=== PATIENT | female | born 2000 | race Caucasian/White ===

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

== ENCOUNTER 2021-09-18 17:37 | Emergency (ER) | payer OTHER ==
[2021-09-18 17:43] VITALS: BP 129/71
--- NOTE | 2021-09-18 17:49 | ED Physician Documentation ---
History of Present Illness - Stated complaint Stated Complaint: FEMALE - Chief complaint Chief Complaint: UTI - History obtained from History obtained from: Patient - History of Present Illness Timing: How many days ago (3-4) Pain level max: 2 Pain level now: 0 - Additonal information Additional information: 20-year-old female presents to the emergency department with dysuria, urinary frequency over the past 3 to 4 days. Similar to prior UTIs. She states that she is sexually active but no STD exposure that she is aware of. No back pain. No vomiting. No fevers. She uses condoms for sexual activity. No vaginal bleeding or discharge. Worse with urination, nothing makes it better. Review of Systems Constitutional: denies: Fever, Chills GI: denies: Abdominal Pain, Nausea, Vomiting, Diarrhea : reports: Dysuria, Frequency, Hesitancy. denies: Incontinent, Now EGA Skin: denies: Rash Musculoskeletal: denies: Neck pain, Back pain PD PAST MEDICAL HISTORY - Past Medical History Cardiovascular: None Respiratory: None Neuro: Migraines Endocrine/Autoimmune: None GI: None PM HEAD COOK: None : None HEENT: None Psych: Depression, Anxiety Musculoskeletal: None Derm: None - Past Surgical History Past Surgical History: No - Present Medications Home Medications: Ambulatory Orders Medication Instructions Recorded Confirmed Nitrofurantoin [Macrobid] 100 mg PO BID #10 cap 09/18/21 Phenazopyridine HCl [Pyridium] 200 mg PO TID PRN #6 tablet 09/18/21 buPROPion HCL [Bupropion Xl] 150 mg ORAL DAILY 09/18/21 09/18/21 - Allergies Allergies/Adverse Reactions: Allergies Allergy/AdvReac Type Severity Reaction Status Date / Time No Known Drug Allergies Allergy Verified 09/18/21 17:40 - Social History Does the pt smoke?: No Smoking Status: Never smoker Does the pt drink ETOH?: No Does the pt have substance abuse?: No - Immunizations Immunizations are current?: Yes - POLST Patient has POLST: No PD ED PE NORMAL - Vitals Vital signs reviewed: Yes - General General: Alert and oriented X 3, No acute distress - HEENT HEENT: Moist mucous membranes - Respiratory Respiratory: No respiratory distress - Abdomen Abdomen: Soft, Non tender, Non distended - Back Back: No CVA TTP - Derm Derm: Warm and dry - Neuro Neuro: Alert and oriented X 3 Results - Vitals Vitals: Vital Signs - 24 hr 09/18/21 17:40 Temperature 36.9 C Heart Rate 75 Respiratory 16 Rate Blood Pressure 129/71 O2 Saturation 100 Oxygen O2 Source Room air - Labs Labs: Laboratory Tests 09/18/21 17:50 Urine Color YELLOW Urine Clarity CLEAR Urine pH 7.0 Ur Specific [place] 1.015 Urine Protein NEGATIVE Urine Glucose (UA) NEGATIVE Urine Ketones NEGATIVE Urine Occult Blood TRACE-INTA Urine Nitrite NEGATIVE Urine Bilirubin NEGATIVE Urine Urobilinogen 0.2 (NORMAL) Ur Leukocyte Esterase SMALL H Urine RBC 6-10 H Urine WBC >25 H Urine WBC Clumps PRESENT Ur Squamous Epith Cells FEW Squamous Amorphous Sediment Rare Urine Bacteria Few Ur Microscopic Review INDICATED Urine Culture Comments INDICATED Urine HCG, Qual NEGATIVE PD MEDICAL DECISION MAKING - ED course Complexity details: reviewed results, considered differential, d/w patient ED course: Patient with a UTI. Will place on antibiotics and Pyridium. No evidence of sepsis, pyelonephritis. Patient counseled regarding signs and symptoms for which I believe and urgent re-evaluation would be necessary. Patient with good understanding of and agreement to plan and is comfortable going home at this time This document was made in part using voice recognition software. While efforts are made to proofread this document, sound alike and grammatical errors may occur. Departure - Departure Disposition: 01 Home, Self Care Clinical Impression: Urinary tract infection Qualifiers: Urinary tract infection type: acute cystitis Hematuria presence: without hematuria Qualified Code(s): N30.00 - Acute cystitis without hematuria Condition: Good Instructions: ED UTI Cystitis Female Follow-Up: VENITA CARDONA ARNP [Primary Care Provider] - As Needed Prescriptions: Nitrofurantoin [Macrobid] 100 mg PO BID #10 cap Phenazopyridine HCl [Pyridium] 200 mg PO TID PRN #6 tablet PRN Reason: dysuria Comments: Please take all antibiotics until gone. Return if you worsen. Follow-up with your doctor as needed for further care. Your prescriptions were sent to the [facility] pharmacy. Discharge Date/Time: 09/18/21 18:13
[2021-09-18 17:55] LABS: BILIRUBIN,URINE NEGATIVE (NEGATIVE); GLUCOSE, URINE (UA) NEGATIVE (NEGATIVE); KETONES,URINE (UA) NEGATIVE (NEGATIVE); LEUKOCYTE ESTERASE, URINE SMALL (NEGATIVE); NITRITE,URINE NEGATIVE (NEGATIVE); OCCULT BLOOD,URINE TRACE-INTA (NEGATIVE); PROTEIN,URINE NEGATIVE (NEGATIVE); UROBILINOGEN,URINE 0.2 (NORMAL) E.U./dL (NORMAL)
[2021-09-18 18:02] LABS: CLARITY,URINE CLEAR (CLEAR); HCG UR QUAL NEGATIVE
[2021-09-18 18:03] LABS: AMORPHOUS SEDIMENT,UR Rare /LPF; BACTERIA,URINE Few /HPF (None Seen); SQUAMOUS EPITHELIAL CELL,UR FEW Squamous (<= Few); WBC CLUMPS,URINE PRESENT; WBC,URINE >25 /HPF (0-5)
[2021-09-18] MEDS ORDERED: NITROFURANTOIN MACRO 100 MG CAPSULE PO STA (18:07)
[2021-09-18] MEDS ORDERED: PHENAZOPYRIDINE 100 MG TABLET PO STA (18:07)
== END 2021-09-18 18:13 | disposition home or self-care (01) ==
LOC: ED 17:37
DX: N30.00 Acute cystitis without hematuria (principal)
CPT/HCPCS: 81001; 81025; 87077; 87086; 99282; 99283; A9270; 81003

== ENCOUNTER 2021-09-27 17:57 | Emergency (ER) | payer OTHER ==
[2021-09-27 18:31] LABS: BILIRUBIN,URINE NEGATIVE (NEGATIVE); GLUCOSE, URINE (UA) NEGATIVE (NEGATIVE); KETONES,URINE (UA) NEGATIVE (NEGATIVE); LEUKOCYTE ESTERASE, URINE SMALL (NEGATIVE); NITRITE,URINE POSITIVE (NEGATIVE); OCCULT BLOOD,URINE TRACE-INTA (NEGATIVE); PH,URINE 7.5 PH (5.0-7.5); PROTEIN,URINE TRACE mg/dL (NEGATIVE); UROBILINOGEN,URINE 1 (NORMAL) E.U./dL (NORMAL)
[2021-09-27 18:36] LABS: CLARITY,URINE HAZY (CLEAR)
[2021-09-27 18:37] LABS: HCG UR QUAL NEGATIVE
[2021-09-27 18:56] LABS: RBC,URINE 0-5 /HPF (0-5); SQUAMOUS EPITHELIAL CELL,UR FEW Squamous (<= Few)
[2021-09-27 18:57] LABS: AMORPHOUS SEDIMENT,UR Few /LPF; BACTERIA,URINE Moderate /HPF (None Seen)
--- NOTE | 2021-09-27 19:21 | ED Physician Documentation ---
PD HPI FEMALE - Stated complaint Stated Complaint: FEMALE - Chief complaint Chief Complaint: UTI - History obtained from History obtained from: Patient - History of Present Illness Timing - onset: How many days ago (4) - Additional information Additional information: 20-year-old female presents for dysuria and urinary frequency. Patient was seen in our ER 09/18 for same complaint, she was discharged on Macrobid and Pyridium. Patient states that she completed those antibiotics on Friday, however 1 to 2 days later her symptoms recurred. Denies flank pain, nausea, vomiting, suprapubic pain, fever, other complaints at this time. Review of Systems Ten Systems: 10 systems reviewed and negative Constitutional: denies: Fever, Chills Cardiac: denies: Chest pain / pressure, Palpitations Respiratory: denies: Dyspnea, Cough : reports: Dysuria, Frequency. denies: Hesitancy, Hematuria, Discharge PD PAST MEDICAL HISTORY - Past Medical History Cardiovascular: None Respiratory: None Neuro: Migraines Endocrine/Autoimmune: None GI: None LABORER ROAD: None : None HEENT: None Psych: Depression, Anxiety Musculoskeletal: None Derm: None - Past Surgical History Past Surgical History: No - Present Medications Home Medications: Ambulatory Orders Medication Instructions Recorded Confirmed Nitrofurantoin [Macrobid] 100 mg PO BID #10 cap 09/18/21 Phenazopyridine HCl [Pyridium] 200 mg PO TID PRN #6 tablet 09/18/21 buPROPion HCL [Bupropion Xl] 150 mg ORAL DAILY 09/18/21 09/18/21 cephALEXin [Keflex] 500 mg PO BID #28 cap 09/27/21 - Allergies Allergies/Adverse Reactions: Allergies Allergy/AdvReac Type Severity Reaction Status Date / Time No Known Drug Allergies Allergy Verified 09/27/21 18:08 - Social History Does the pt smoke?: No Smoking Status: Never smoker Does the pt drink ETOH?: No Does the pt have substance abuse?: No - Immunizations Immunizations are current?: Yes - POLST Patient has POLST: No PD ED PE NORMAL - Vitals Vital signs reviewed: Yes - General General: Alert and oriented X 3, No acute distress, Well developed/nourished - HEENT HEENT: Atraumatic, PERRL, EOMI, Ears normal, Moist mucous membranes - Neck Neck: Supple, no meningeal sign, No bony TTP, No adenopathy - Cardiac Cardiac: RRR, No rub, Strong equal pulses - Respiratory Respiratory: No respiratory distress, Clear bilaterally - Abdomen Abdomen: Soft, Non tender, Non distended - Female Female : Deferred - Rectal Rectal: Deferred - Back Back: No CVA TTP, No spinal TTP - Derm Derm: Normal color, Warm and dry, No rash - Extremities Extremities: No deformity, No tenderness to palpate, Normal ROM s pain, No edema, No calf tenderness / cord - Neuro Neuro: Alert and oriented X 3, gas desulfurizer 2-12 intact, No motor deficit, No sensory deficit, Normal speech - Psych Psych: Normal mood, Normal affect Results - Vitals Vitals: Vital Signs - 24 hr 09/27/21 18:05 Temperature 36.7 C Heart Rate 73 Respiratory 14 Rate Blood Pressure 124/68 O2 Saturation 100 Oxygen O2 Source Room air - Labs Labs: Laboratory Tests 09/27/21 18:20 Urine Color YELLOW Urine Clarity HAZY Urine pH 7.5 Ur Specific [place] 1.015 Urine Protein TRACE Urine Glucose (UA) NEGATIVE Urine Ketones NEGATIVE Urine Occult Blood TRACE-INTA Urine Nitrite POSITIVE H Urine Bilirubin NEGATIVE Urine Urobilinogen 1 (NORMAL) Ur Leukocyte Esterase SMALL H Urine RBC 0-5 Urine WBC 11-25 H Ur Squamous Epith Cells FEW Squamous Amorphous Sediment Few Urine Bacteria Moderate H Ur Microscopic Review INDICATED Urine Culture Comments INDICATED Urine HCG, Qual NEGATIVE PD MEDICAL DECISION MAKING - ED course Complexity details: reviewed old records, reviewed results ED course: Dysuria. Patient's culture from 09/18 reviewed, significant for staph saprophyticus which was pansensitive, no culture indicated at that time. Patient has nitrites and leukocyte esterase in her urine. We will do 7-day course of Keflex. Patient counseled to drink plenty of water, wipe from front to back when using the restroom, and to urinate immediately after intercouse. Departure - Departure Disposition: 01 Home, Self Care Clinical Impression: Cystitis Condition: Stable Instructions: ED UTI Cystitis Female Prescriptions: cephALEXin [Keflex] 500 mg PO BID #28 cap Comments: Take all of your antibiotics as prescribed. Drink plenty of fluids such as water in order to flush out your kidney and bladder. If you have sex urinate immediately afterwards. If you use the restroom wipe from front to back to avoid worsening infection or return of symptoms.
[2021-09-27 20:19] VITALS: BP 132/86
== END 2021-09-27 20:18 | disposition home or self-care (01) ==
LOC: ED 17:57
DX: N30.90 Cystitis, unspecified without hematuria (principal)
CPT/HCPCS: 81001; 81003; 81025; 87077; 87086; 99282; 99283

== ENCOUNTER 2023-07-14 19:18 | Emergency (ER) | payer MEDICAID, OTHER ==
[2023-07-14 19:39] VITALS: O2SAT 100
--- NOTE | 2023-07-14 21:31 | XRAY Report ---
PROCEDURE: Shoulder 2+V LT INDICATIONS: shoulder inj TECHNIQUE: 3 views of the shoulder were acquired. COMPARISON: CXR 12/10/2019. FINDINGS: Bones: No fractures. No dislocation demonstrated. No suspicious bony lesions. Visualized ribs appe ar intact. Soft tissues: No suspicious soft tissue calcifications. The visualized lungs are within normal limi ts. IMPRESSION: No acute osseous abnormality. Reviewed by: Cm Joy MD on 07/14/2023 9:30 PM PDT Approved by: Cm Joy MD on 07/14/2023 9:30 PM PDT Station ID: [id number]
[2023-07-14 21:33] VITALS: BP 124/90
--- NOTE | 2023-07-14 21:41 | ED Physician Documentation ---
PD HPI UPPER EXT INJURY - Stated complaint Stated Complaint: LT SHOULDER PX - Chief complaint Chief Complaint: Trauma Ext - History obtained from History obtained from: Patient - Additonal information Additional information: She has chronic hypermobile joints and 4 days ago she was closing a window and felt her shoulder pop out and it feels like it has not popped back in yet. 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 : None HEENT: None Psych: Depression, Anxiety Musculoskeletal: None Derm: None - Past Surgical History Past Surgical History: Yes Ortho: Other - Present Medications Home Medications: Ambulatory Orders Medication Instructions Recorded Confirmed Nitrofurantoin [Macrobid] 100 mg PO BID #10 cap 09/18/21 Phenazopyridine HCl [Pyridium] 200 mg PO TID PRN #6 tablet 09/18/21 buPROPion HCL [Bupropion Xl] 150 mg ORAL DAILY 09/18/21 09/18/21 cephALEXin [Keflex] 500 mg PO BID #28 cap 09/27/21 - Allergies Allergies/Adverse Reactions: Allergies Allergy/AdvReac Type Severity Reaction Status Date / Time No Known Drug Allergies Allergy Verified 07/14/23 19:19 - Social History Does the pt smoke?: No Smoking Status: Never smoker Does the pt drink ETOH?: No Does the pt have substance abuse?: No - Immunizations Immunizations are current?: Yes - POLST Patient has POLST: No PD ED PE NORMAL - Vitals Vital signs reviewed: Yes - General General: Alert and oriented X 3, No acute distress - Extremities Extremities: Other (She has minimal tenderness of the left shoulder with relatively full range of motion. There is no deformity. She does have evidence of joint hypermobility such as being able to touch her thumb to her forearm.) - Neuro Neuro: Alert and oriented X 3, Normal speech Results - Vitals Vitals: Vital Signs - 24 hr 07/14/23 07/14/23 19:20 21:27 Temperature 36.8 C Heart Rate 83 65 Respiratory 16 16 Rate Blood Pressure 135/89 H 124/90 H O2 Saturation 100 100 Oxygen O2 Source Room air - Rads (name of study) Three-view x-ray of the left shoulder was unremarkable. Relevant Findings:: Final report received, EMP independent interpretation of test PD Medical Decision Making - ED course ED course: She was concerned about a persistent shoulder dislocation, that said it is in joint on x-ray and she has good range of motion. She does have joint hypermobility on physical examination by history and PCP follow-up was advised. Departure - Departure Disposition: 01 Home, Self Care Clinical Impression: Hypermobile joints Sprain of left shoulder Qualifiers: Encounter type: initial encounter Shoulder sprain type: unspecified sprain Qualified Code(s): S43.402A - Unspecified sprain of left shoulder joint, initial encounter Condition: Good Record reviewed to determine appropriate education?: Yes Instructions: ED Sprain Shoulder Comments: If pain is bad you can take Tylenol and/or ibuprofen. I do want you to see your primary care physician as it seems that you do have significant hypermobility of the joints. Return for new or worsening symptoms. A list of primary care physicians as listed at the end of this paperwork.
== END 2023-07-14 21:47 | disposition home or self-care (01) ==
LOC: ED 19:18
DX: S43.402A Unspecified sprain of left shoulder joint, initial encounter (principal); X58.XXXA Exposure to other specified factors, initial encounter; Y93.E9 Activity, other interior property and clothing maintenance
CPT/HCPCS: 99283